=== PATIENT | female | born 1935 | race Caucasian/White ===

== ENCOUNTER 2016-03-18 17:38 | Inpatient (IN) | payer OTHER, BC ==
[~2016-03-18] VITALS: Ht 162.6 cm; Wt 44.5 kg
--- NOTE | ~2016-03-18 | EKG ---
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: [facility] : 1935 Requested By: Celine Christie Order Number: [id number] MD: Elmer Pace Measurements Intervals [place] Rate: 102 P: 78 [place]: 164 QRS: 26 QRSD: 93 T: 75 QT: 329 QTc: 429 Interpretive Statements Sinus tachycardia Right atrial enlargement Cannot rule out anteroseptal infarct, old Compared to ECG 07/03/2015 06:01:31 No significant change was found Electronically Signed On 03-19-2016 8:01:49 MAINTENANCE ENGINEER by Elmer Pace [email or web address] <ELECTRONICALLY SIGNED> By: Elmer Pace MD, [facility] 03/19/16 0801 1840 1840 Emler Pace MD, [facility] /EPI
--- NOTE | ~2016-03-18 | HC ---
[facility] [place] [address] CONSULTATION Name: MIRIAM WISE Room #: 441-P [facility] IN ..#: [id number] Admission: 03/18/16 Attend Phys: Javid Campos MD Discharge: Date of : 35 Report #: [id number] THIS REPORT FOR: //name// CC: FAM physician/PCP Javid Campos MD PRIMARY CARE PHYSICIAN: Patricia Chaney M.D. REFERRING PHYSICIAN: Javid Campos M.D. REASON FOR REFERRAL: Dyspnea and COPD. HISTORY OF PRESENT ILLNESS: The patient is an 80-year-old white female who presented to the Emergency Room with dyspnea. She was admitted with an exacerbation of COPD. A pulmonary consultation was requested. The patient is normally followed by Dr. Jane. She has known COPD. She is normally on nebulized Brovana and Budesonide twice a day along with Mucomyst. She has chronic hypoxic respiratory failure, on supplemental oxygen. She is chronically on 2 liters of O2. She was in her usual state of health until 3 days prior to presentation she started to develop increasing dyspnea. She also notes drowsiness. About less than a week ago, she was treated for possible sinus infection. Otherwise, denies any chest pain. No nausea, vomiting, diarrhea, hematemesis, hematochezia or melena. PAST MEDICAL HISTORY: Remarkable for COPD, severe impairment, baseline FEV1 of 0.48 liters, 27% predicted; history of lung cancer, undergone thoracotomy; she had a right upper lobe resection in 2013 for recurrent cancer. Initial lung cancer was diagnosed in 2002, peripheral neuropathy with essential tremor. ALLERGIES: To PENICILLIN which causes nausea, vomiting and diarrhea. HOME MEDICATIONS: List reviewed. She is also on acetylcysteine twice a day, 2 liters of O2 24 hours a day, Xopenex 1.25 mg q.8 hours, Brovana 15 mcg nebulized twice a day, budesonide nebulized twice a day, Spiriva once a day and prednisone 10 mg once a day. FAMILY HISTORY: Notable for both parents with reasons not specified. SOCIAL HISTORY: She has smoked most of her life until 2014. She denies any alcohol use. She is and is retired. [address] [address] CONSULTATION Name: MIRIAM WISE Room #: 441-P [facility] IN [facility].#: [id number] Admission: 03/18/16 Attend Phys: Javid Campos MD Discharge: Date of : 35 Report #: [id number] REVIEW OF SYSTEMS: As mentioned above; otherwise, 10-point system review is negative. PHYSICAL EXAMINATION: GENERAL: She is awake and alert, in moderate respiratory distress. She appears moderately dyspneic. VITAL SIGNS: Temperature is 98 degrees Fahrenheit, pulse is 90, respiratory rate is 22, blood pressure is 120/____ mmHg and saturation 96%. HEENT: Normocephalic and atraumatic. NECK: Supple, without lymphadenopathy or thyromegaly. CHEST: Breath sounds are decreased bilaterally with prolonged expiratory phase. Mild expiratory wheezes are heard bilaterally. CARDIOVASCULAR: Normal S1 and S2. There are no murmurs or gallop. There is no JVD. There is no carotid bruit. Pulses are 2+/4+ bilaterally. ABDOMEN: Soft and nontender, no organomegaly or masses felt. GENITOURINARY: Deferred. RECTAL: Deferred. EXTREMITIES: No cyanosis, clubbing or edema. MUSCULOSKELETAL: Remarkable for moderate atrophy with cachexia. LABORATORY DATA: Chest x-ray shows hyperexpanded lung rosario, no obvious infiltrates or effusion seen. Electrolytes unremarkable except for bicarbonate of 42. Liver function test is grossly unremarkable. WBC 12,700, hemoglobin 10.3 and platelets mildly elevated. Arterial blood gas on admission revealed pH 7.28, pCO2 of 94, PaO2 of 138 on 2 liters of O2. Albumin 3.3. IMPRESSION: 1. Vsxzv-al-uxyizej hypercapnic hypoxic respiratory failure in this 80-year-old white female secondary to exacerbation of very severe chronic obstructive pulmonary disease. She had a recent sinus infection. Chest x-ray is relatively unremarkable. 2. History of lung cancer with recurrence, status post thoracotomy as mentioned above. No obvious lung mass or recurrence. 3. 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 RECOMMENDATIONS: I agree with current medical treatment including corticosteroids and bronchodilators. DVT and GI prophylaxis will be addressed. I think it is reasonable to hold off antibiotics as she was recently given antibiotics within the past week. Nutritional support will be important as the patient appeared to have some degree of malnutrition probably related to severe pulmonary disease. Nutritional supplements recommended. [address] [address] CONSULTATION Name: WISEMIRIAM A Room #: 441-P [facility] IN M.R.#: [id number] Admission: 03/18/16 Attend Phys: Javid Campos MD Discharge: Date of : 35 Report #: [id number] Thank you for this consultation. <ELECTRONICALLY SIGNED> By: Mike James MD 03/20/16 1611 1709 0145 Mike James MD /nt
[~2016-03-18 17:38] MED LIST: ACETAMINOPHEN325 M1 PO; ACETYLCYST1000 MG/10 INH; ALPHA LIPOIC A200 M1; ALPHA LIPOIC A200 MG; ARTIFICIAL TEA1 EACH OP; ASTELIN30 ML; ASTELIN30 ML NASAL; AVELOX 400 MG PO; AVELOX 400 MG400 MG PO; BROVANA15 MCG/2 M INH; BUDEPRION SR150 MG PO; BUDESONIDE0.25 MG/2 INH; CALCIUM 600 +1 EAC1 PO; CALMS FORTE; CEPACOL SORE T1 EAC8 PO; CETIRIZINE HCL5 MG PO; CLARITIN10 MG PO; CLONAZEPAM 0.50.5 M1 PO; CLONAZEPAM PO; CLONAZEPAM0.125 MG PO; CLONAZEPAM0.25 MG PO; CODEINE-GUAIFE120 ML PO; COENZYME Q1050 MG; DELSYM COU30 MG/5 M1 PO; DOXYCYCLINE 10100 MG PO; DUONEB 2.5-0.5 M3 ML INH; FISH OIL 1,0001 EAC5 PO; FLOMAX0.4 MG PO; FLONASE 0.05%50 MCG NASAL; GABAPENTIN100 MG PO; HEPARIN 50500 UNIT/5 SUBQ; HIZENTRA1 GM/5 ML; HIZENTRA1 GM/5 ML SUBQ; IBUPROFEN 200200 M1; IBUPROFEN 400400 M2 PO; IPRATROPIU0.2 MG/1 M IH; LEVAQUIN 500 M500 M2 PO; LEVAQUIN 750 M750 MG PO; LIDODERM 5%1 PATC1 TRANSDERM; MUCINEX600 MG PO; MULTIVITAMINS PO; MULTIVITAMINS1 EAC7; MYSOLINE50 MG PO; N-ACETYL-L-CYS600 MG PO; NICOTINE TRANSD14 M1 TRANSDERM; NICOTINE TRANSDERM; NITROFURANTOIN100 MG PO; OMEPRAZOLE PO; PATADAY2.5 ML; PEPCID20 MG PO; PHENASEPTIC1 BOT MUCOUS MEM; PREDNISONE 10 M10 M1 PO; PREDNISONE 10 M10 MG PO; PREDNISONE 20 M20 M1 PO; PREDNISONE 20 M20 MG PO; PREDNISONE 5 MG5 M1 PO; PREDNISONE50 MG PO; PRIMIDONE50 MG PO; PROTONIX40 M1 PO; PROVENTIL INH; PULMICORT0.5 MG/22 INH; REMERON15 MG PO; REQUIP 0.25 M0.25 M1 PO; REQUIP 0.25 M0.25 MG PO; SOLU-MEDRO40 MG/1 M2 IV PUSH; SPIRIVA INH; SULFACETAMIDE 115 M1 OP; SYMBICORT160 MCG/4. INH; TUSSIN CF COUG118 M2 PO; TUSSIN15 MG/5 ML PO; TUSSIN400 MG; ULTRAM 50MG TAB50 MG PO; VITAMINC500 PO; XOPENEX 0.63 MG/3 M1 INH; ZOFRAN ODT4 MG PO; ZOLOFT100 MG PO; ZYRTEC 10 MG TA10 M1 PO; ZYRTEC10 M2; [UNRECOGNIZED DRUG - OTHER]; [UNRECOGNIZED DRUG - OTHER] PO
[2016-03-18 17:39] VITALS: BP 179/67
[2016-03-18] MEDS ORDERED: PREDNISONE 20 M20 MG PO (17:55)
[2016-03-18 19:08] LABS: ABG SAMPLE TYPE ARTERIAL; HCO3 37.1 mmol/L (22.0-26.0); LACTATE 0.66 mmol/L (0.5-2.0); O2(CT) 16.2 mL/dL (15.0-23.0); O2Hb 96.3 % (92.0-98.0); PCO2 70.2 mmHg (35.0-45.0); PO2 98.7 mmHg (80.0-100.0); STICK SITE R.RADIAL; pH 7.341 (7.360-7.450); sO2 96.9 % (92.0-98.0); tCO2 39.3 mmol/L (24.0-30.0)
[2016-03-18 19:27] LABS: HEMATOCRIT 32.9 % (37.0-47.0); HEMOGLOBIN 10.3 gm/dL (12.0-15.0); MCH 28.9 pg (26.0-34.0); MCHC 31.4 % (28.0-37.0); MCV 92.1 fL (80.0-100.0); PLATELET COUNT 427 thou/uL (150-400); RBC 3.58 mil/uL (4.20-5.00); RDW 14.5 % (10.5-14.5); WBC 12.7 thou/uL (4.0-11.0)
[2016-03-18 19:30] LABS: MANUAL DIFF YES
[2016-03-18 19:32] LABS: ANION GAP < 0 mmol/L (7-16); BUN 18 mg/dL (7-18); CHLORIDE 99 mmol/L (98-107); CO2 42 mmol/L (21-32); CREATININE 0.7 mg/dL (0.6-1.3); GLUCOSE 128 mg/dL (70-99); POTASSIUM 4.6 mmol/L (3.5-5.1); SODIUM 140 mmol/L (136-145)
[2016-03-18 19:45] LABS: NT-PRO BRAIN NAT PEPTIDE 134 pg/mL (<300)
[2016-03-18 19:50] LABS: ABSOLUTE NEUTROPHILS 11.9 thou/uL (1.4-8.2); TOTAL CELL COUNT 100
[2016-03-18 20:05] VITALS: BP 143/66
[2016-03-18 20:20] VITALS: BP 160/57
[2016-03-19 04:00] VITALS: BP 143/45
[2016-03-19 05:25] LABS: ABG SAMPLE TYPE ARTERIAL; BE(vivo) 13.5 mmol/L (-2 to +3); HCO3 43.7 mmol/L (22.0-26.0); LACTATE 0.66 mmol/L (0.5-2.0); O2(CT) 15.7 mL/dL (15.0-23.0); O2Hb 97.2 % (92.0-98.0); PCO2 94.9 mmHg (35.0-45.0); PO2 138.7 mmHg (80.0-100.0); STICK SITE R.RADIAL; pH 7.281 (7.360-7.450); sO2 98.3 % (92.0-98.0); tCO2 46.6 mmol/L (24.0-30.0)
[2016-03-19 06:58] LABS: ALBUMIN 3.3 g/dL (3.4-5.0); CALCIUM 9.7 mg/dL (8.5-10.1); CREATININE 0.7 mg/dL (0.6-1.3); TOTAL BILIRUBIN 0.2 mg/dL (<0.1-1.0); TOTAL PROTEIN 7.2 g/dL (6.4-8.2)
[2016-03-19 08:00] VITALS: BP 144/63
[2016-03-19] MEDS ORDERED: PRESERVISION A1 EACH PO (09:36)
[2016-03-19 12:00] VITALS: BP 128/36
[2016-03-19 12:45] VITALS: BP 136/58
[2016-03-19 20:00] VITALS: BP 95/54
[2016-03-19 21:47] LABS: ABG SAMPLE TYPE ARTERIAL; BE(vivo) 14.7 mmol/L (-2 to +3); HCO3 42.1 mmol/L (22.0-26.0); O2(CT) 15.5 mL/dL (15.0-23.0); O2Hb 95.1 % (92.0-98.0); PO2 80.1 mmHg (80.0-100.0); sO2 95.5 % (92.0-98.0); tCO2 44.2 mmol/L (24.0-30.0)
[2016-03-19 21:49] LABS: STICK SITE R.RADIAL
[2016-03-20 05:30] VITALS: BP 142/75
[2016-03-20 08:24] VITALS: BP 173/66
[2016-03-20 12:21] VITALS: BP 149/67
[2016-03-20 16:33] VITALS: BP 163/62
[2016-03-20 20:10] VITALS: BP 184/84
[2016-03-21 04:28] VITALS: BP 153/72
[2016-03-21 05:25] LABS: HEMATOCRIT 35.4 % (37.0-47.0); HEMOGLOBIN 10.9 gm/dL (12.0-15.0); MCH 28.9 pg (26.0-34.0); MCHC 30.8 % (28.0-37.0); MCV 93.7 fL (80.0-100.0); RBC 3.78 mil/uL (4.20-5.00); RDW 14.7 % (10.5-14.5); WBC 18.8 thou/uL (4.0-11.0)
[2016-03-21 06:00] LABS: CALCIUM 9.3 mg/dL (8.5-10.1); CREATININE 0.9 mg/dL (0.6-1.3); MAGNESIUM 1.9 mg/dL (1.8-2.4); POTASSIUM 4.1 mmol/L (3.5-5.1)
[2016-03-21 07:35] VITALS: BP 165/66
[2016-03-21 10:49] VITALS: BP 174/56
[2016-03-21 12:19] VITALS: BP 165/80
[2016-03-21 19:41] VITALS: BP 180/74
[2016-03-21 23:45] VITALS: BP 162/61
[2016-03-22 04:07] VITALS: BP 135/60
[2016-03-22 04:42] LABS: HEMATOCRIT 34.3 % (37.0-47.0); HEMOGLOBIN 10.8 gm/dL (12.0-15.0); MCH 29.5 pg (26.0-34.0); MCHC 31.6 % (28.0-37.0); MCV 93.3 fL (80.0-100.0); RBC 3.67 mil/uL (4.20-5.00); RDW 14.9 % (10.5-14.5)
[2016-03-22 05:15] LABS: CALCIUM 9.1 mg/dL (8.5-10.1); CREATININE 0.7 mg/dL (0.6-1.3); POTASSIUM 4.5 mmol/L (3.5-5.1)
[2016-03-22 07:33] VITALS: BP 159/77
[2016-03-22 07:35] LABS: ABG SAMPLE TYPE ARTERIAL; BE(vivo) 6.4 mmol/L (-2 to +3); HCO3 32.5 mmol/L (22.0-26.0); O2(CT) 15.1 mL/dL (15.0-23.0); O2Hb 92.6 % (92.0-98.0); PCO2 53.6 mmHg (35.0-45.0); PO2 69.4 mmHg (80.0-100.0); STICK SITE R.BRACHIAL; sO2 93.6 % (92.0-98.0); tCO2 34.1 mmol/L (24.0-30.0)
[2016-03-22 11:49] VITALS: BP 154/86
[2016-03-22] MEDS ORDERED: NYSTATIN 1100000 U/M SW&SWALLOW (16:30)
[2016-03-22 16:51] VITALS: BP 180/82
[2016-03-23 08:57] VITALS: BP 180/82
[2016-04-03] MEDS ORDERED: TUSNEL LIQUID3840 ML (12:23)
[2016-04-06] MEDS ORDERED: ENOXAPARIN30 MG/0.1 SUBQ (08:48)
[2016-04-06] MEDS ORDERED: DUONEB 2.5-0.5 M3 ML INH (08:48)
[2016-04-06] MEDS ORDERED: AMLODIPINE BESY10 MG PO (08:48)
[2016-04-06] MEDS ORDERED: SOLU-MEDRO40 MG/1 M2 IV PUSH (08:50)
[2016-04-06] MEDS ORDERED: LEVAQUIN 250 M250 MG PO (08:56)
[2016-04-06] MEDS ORDERED: VANCO 1 GR1 GM/250 M IVPB (15:33)
== END 2016-03-22 19:21 | DRG 189 ==
LOC: ER 17:38 → EROBS 19:22 → 4S 19:22
PROVIDERS: Emergency Medicine; Hospitalist; Internal Medicine Pulmonary Disease; Nurse Practitioner Acute Care; Nurse Practitioner Family
PROC: 5A09357 Assistance with Respiratory Ventilation, Less than 24 Consecutive Hours, Continuous Positive Airway Pressure (ICD-10-PCS; principal; 2016-03-19)
DX: J96.22 Acute and chronic respiratory failure with hypercapnia (principal); E43 Unspecified severe protein-calorie malnutrition; J44.1 Chronic obstructive pulmonary disease with (acute) exacerbation; Z68.1 Body mass index [BMI] 19.9 or less, adult; F41.9 Anxiety disorder, unspecified; K21.9 Gastro-esophageal reflux disease without esophagitis; M51.36 Other intervertebral disc degeneration, lumbar region; G62.9 Polyneuropathy, unspecified; J96.21 Acute and chronic respiratory failure with hypoxia; Z88.0 Allergy status to penicillin; Z88.8 Allergy status to other drugs, medicaments and biological substances; Z99.81 Dependence on supplemental oxygen; Z79.899 Other long term (current) drug therapy; Z85.118 Personal history of other malignant neoplasm of bronchus and lung; Z88.1 Allergy status to other antibiotic agents; Z87.891 Personal history of nicotine dependence
CPT/HCPCS: 10100

== ENCOUNTER → 2016-05-22 | Outpatient (CLI) | payer OTHER, BC ==
[~2016-05-22] MED LIST changes: +AMLODIPINE BESY10 MG PO; +ENOXAPARIN30 MG/0.1 SUBQ; +LEVAQUIN 250 M250 MG PO; +NYSTATIN 1100000 U/M SW&SWALLOW; +PRESERVISION A1 EACH PO; +TUSNEL LIQUID3840 ML; +VANCO 1 GR1 GM/250 M IVPB
[2016-05-22 12:30] LABS: ABG SAMPLE TYPE ARTERIAL; BE(vivo) 10.1 mmol/L (-2 to +3); HCO3 37.8 mmol/L (22.0-26.0); O2(CT) 16.6 mL/dL (15.0-23.0); O2Hb 95.4 % (92.0-98.0); PO2 79.3 mmHg (80.0-100.0); tCO2 39.9 mmol/L (24.0-30.0)
[2016-05-22 12:31] LABS: PCO2 66.9 mmHg (35.0-45.0); STICK SITE L.RADIAL
== END ==
LOC: PUL 02:03 → CAT 11:14 → PUL 16:10
PROVIDERS: Radiology Radiation Oncology
DX: J43.9 Emphysema, unspecified (principal); R91.1 Solitary pulmonary nodule; I25.10 Atherosclerotic heart disease of native coronary artery without angina pectoris; E27.8 Other specified disorders of adrenal gland

== ENCOUNTER 2016-06-02 14:06 | Emergency (ER) | payer OTHER, BC ==
[~2016-06-02] VITALS: Ht 160 cm; Wt 45.4 kg
[2016-06-02 14:52] LABS: ABG SAMPLE TYPE ARTERIAL; BE(vivo) 6.2 mmol/L (-2 to +3); HCO3 33.2 mmol/L (22.0-26.0); LACTATE 1.43 mmol/L (0.5-2.0); O2(CT) 16.1 mL/dL (15.0-23.0); O2Hb 96.2 % (92.0-98.0); PCO2 59.8 mmHg (35.0-45.0); PO2 93.8 mmHg (80.0-100.0); STICK SITE R.BRACHIAL; pH 7.362 (7.360-7.450); sO2 96.7 % (92.0-98.0)
[2016-06-02 15:13] LABS: HEMATOCRIT 35.9 % (37.0-47.0); HEMOGLOBIN 11.7 gm/dL (12.0-15.0); MCHC 32.5 g/dL (28.0-37.0); MCV 95.4 fL (80.0-100.0); PLATELET COUNT 490 thou/uL (150-400); RBC 3.77 mil/uL (4.20-5.00); RDW 14.3 % (10.5-14.5); WBC 18.5 thou/uL (4.0-11.0)
[2016-06-02 15:15] LABS: MANUAL DIFF YES
[2016-06-02 15:26] LABS: CREATININE 0.8 mg/dL (0.6-1.3)
[2016-06-02 15:27] LABS: POTASSIUM 4.3 mmol/L (3.5-5.1)
[2016-06-02 15:49] LABS: ABSOLUTE NEUTROPHILS 17.4 thou/uL (1.4-8.2); ANISOCYTOSIS SLIGHT; TOTAL CELL COUNT 100
[2016-06-02] MEDS ORDERED: PREDNISONE 20 M20 MG PO (17:23)
[2016-06-02] MEDS ORDERED: NORCO 5-325 TA1 EACH PO (17:27)
[2016-06-02] MEDS ORDERED: ULTRAM 50MG TAB50 MG PO (17:32)
[2016-06-02 17:40] LABS: URINE BILIRUBIN NEGATIVE (Negative); URINE BLOOD NEGATIVE (Negative); URINE COLOR YELLOW; URINE GLUCOSE-RANDOM* NEGATIVE (Negative); URINE KETONES NEGATIVE (Negative); URINE NITRITE NEGATIVE (Negative); URINE PROTEIN (DIPSTICK) NEGATIVE (Negative); URINE UROBILINOGEN 0.2 E.U./dl (0.2-1.0)
== END 2016-06-02 19:36 | disposition home or self-care (01) ==
LOC: ER 14:06
PROVIDERS: Emergency Medicine
DX: M54.9 Dorsalgia, unspecified (principal); J44.9 Chronic obstructive pulmonary disease, unspecified; D72.829 Elevated white blood cell count, unspecified; F41.9 Anxiety disorder, unspecified; M51.37 Other intervertebral disc degeneration, lumbosacral region; F32.9 Major depressive disorder, single episode, unspecified; Z85.118 Personal history of other malignant neoplasm of bronchus and lung; G62.9 Polyneuropathy, unspecified; Z86.2 Personal history of diseases of the blood and blood-forming organs and certain disorders involving the immune mechanism; Z88.1 Allergy status to other antibiotic agents; Z88.8 Allergy status to other drugs, medicaments and biological substances; Z87.891 Personal history of nicotine dependence

== ENCOUNTER → 2016-06-05 | Outpatient (CLI) | payer OTHER, BC ==
[~2016-06-05] MED LIST changes: +NORCO 5-325 TA1 EACH PO
== END ==
LOC: RAD 11:36
DX: M41.84 Other forms of scoliosis, thoracic region (principal); M47.814 Spondylosis without myelopathy or radiculopathy, thoracic region; M54.6 Pain in thoracic spine; R07.89 Other chest pain

== ENCOUNTER 2016-06-25 03:46 | Inpatient (IN) | payer OTHER, BC ==
[2016-06-25] VITALS (30 sets, daily range): BP systolic 71–140; BP diastolic 37–74
[~2016-06-25] VITALS: Ht 162.6 cm; Wt 51.8 kg
--- NOTE | ~2016-06-25 | EKG ---
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 : 1935 Requested By: Jeniffer Chino Order Number: [id number] MD: Elmer Pace Measurements Intervals [place] Rate: 208 P: [place]: QRS: 30 QRSD: 72 T: 88 QT: 244 QTc: 455 Interpretive Statements Incomplete analysis due to missing data in precordial lead(s) Atrial fibrillation with rapid V-rate Repolarization abnormality, prob rate related Missing lead(s): V4 Compared to ECG 06/25/2016 04:22:00 atrial fibrillation has replaced sinus tachycardia ST and T-wave abnormality is more prominent Electronically Signed On 06-28-2016 8:24:43 CDT by Elmer Pace [email or web address] <ELECTRONICALLY SIGNED> By: Elmer Pace MD, FACC 06/28/16 0824 08 08 Elmer Pace MD, FACC /EPI
--- NOTE | ~2016-06-25 | EKG ---
[address] [place] [place] [address] ELECTROCARDIOGRAM REPORT Name: WISEMIRIAM Room #: 244-P ADM IN .R.#: [id number] Admission: 06/25/16 Attend Phys: Valeriano Moe MD Discharge: Date of : 35 Report #: [id number] THIS REPORT FOR: //name// [facility] ED Test Date: 2016-06-25 Test Time: 04:22:00 Pat Name: MIRIAM WISE Department: Room: [facility] Gender: F Demurrage Man: matilde : 1935 Requested By: Josselyn Baig Order Number: [id number] MD: Elmer Pace Measurements Intervals [place] Rate: 110 P: 75 [place]: 134 QRS: 38 QRSD: 80 T: 75 QT: 317 QTc: 429 Interpretive Statements Sinus tachycardia Right atrial enlargement Inferior infarct, possibly acute Artifact in lead(s) I,II,III,aVR,aVL,aVF Compared to ECG 04/03/2016 02:55:06 No significant change was found Electronically Signed On 06-25-2016 9:27:25 CDT by Elmer Pace [email or web address] <ELECTRONICALLY SIGNED> By: Elmer Pace MD, [facility] 06/25/16 0927 1 1 Elmer Pace MD, [facility] /EPI
--- NOTE | ~2016-06-25 | HC ---
[place] [address] CONSULTATION Name: MIRIAM WISE Room #: 312-P [facility] IN M.R.#: [id number] Admission: 06/25/16 Attend Phys: Jeffry Borrego DO Discharge: Date of : 35 Report #: [id number] THIS REPORT FOR: //name// CC: Mika Moe DATE OF SERVICE: 06/25/2016 REASON FOR CONSULTATION: 1. Exacerbation of chronic obstructive pulmonary disease. 2. Possible pneumonia. 3. ST abnormalities. 4. History of lung carcinoma with treatment with radiation and past surgery. 5. New nodule. 6. Anemia. 7. Immune deficiency PLAN: I agree with current steroids, antibiotics, aerosol therapy. Cardiology to see. DVT and ulcer prophylaxis. Discussed with daughter, we will have her bring in the Trilogy. HISTORY OF PRESENT ILLNESS: An 80-year-old female comes in with complaint of shortness of breath, has been having chest pain, shoulders and back. Was prescribed Tramadol and nonsteroidals when she came in hypercapnic. She has not been using her Trilogy. PAST MEDICAL HISTORY: MEDICATIONS: Augmentin. SOCIAL HISTORY: Positive tobacco in past. Negative ETOH. PAST SURGICAL HISTORY: Include tonsillectomy, oophorectomy, hysterectomy, and lobectomy. REVIEW OF SYSTEMS: Positive for COPD, neuropathy, tremor, lung CA, dyspnea on exertion, back pain. No dysuria. Positive shortness breath, cough, intolerant of Trilogy. FAMILY HISTORY: No history of lung disease. CURRENT MEDICATIONS: On Protonix, ceftriaxone, , Requip, Xopenex, ipratropium, budesonide. PHYSICAL EXAMINATION: VITAL SIGNS: Temperature 96.8, blood pressure is 136/47. [address] [place] [address] CONSULTATION Name: BECK WISEVERONICA Gustafson Room #: 312-P [facility] IN [facility]#: [id number] Admission: 06/25/16 Attend Phys: Jeffry Borrego DO Discharge: Date of : 35 Report #: [id number] LUNGS: Decreased. HEART: Regular. ABDOMEN: Bowel sounds present. EXTREMITIES: Showed no edema. GENERAL: Thin, weak today. LABORATORY DATA: INR 1. BUN 27, creatinine 0.7. Albumin 3.2. White count 16.1, hemoglobin 11.2, platelets 359. pH 7.204, pCO2 of 116, pO2 of 152 on 3 liters. Chest x-ray showed left upper lobe mass, troponin less than 0.04. <ELECTRONICALLY SIGNED> By: Mika Jane MD 06/26/16 1811 1450 0118 Mika Jane MD /nt
--- NOTE | ~2016-06-25 | 2DMMODE ---
[facility] [address] [place] [address] 2 D/M-MODE ECHOCARDIOGRAM Name: MIRIAM WISE Room #: 244-P [facility] IN ..#: [id number] Admission: 06/25/16 Attend Phys: Valeriano Moe, Discharge: Date of : 35 Date of Service: 06/25/16 1557 Report #: [id number] THIS REPORT FOR: //name// APPROVED REPORT Study performed: 06/25/2016 15:18:17 EXAM: Comprehensive 2D, Doppler, and color-flow Echocardiogram Patient Location: Bedside Room #: 244 Blood Pressure: 127/44 mmHg HR: 92 bpm Other Information Study Quality: Good Indications COPD Dyspnea 2D Dimensions RVDd: 35.05 mm LVEF(%): 55.52 (>50%) IVSd: 9.20 (7-11mm) LVOT Diam: 18.77 (18-24mm) LVDd: 40.69 mm PWd: 9.11 (7-11mm) Ascending Ao: 36.76 (22-36mm) LVDs: 29.08 (25-40mm) Aortic Root: 38.10 mm IVC: 22.00 mm Apple's LVEF: 55.52 % Volumes Left Atrial Volume (Systole) Single Plane 4CH: 22.87 mL Single Plane 2CH: 15.59 mL LA ESV Index: 14.00 mL/m2 Aortic Valve AoV Peak Trae.: 1.24 m/s AO Peak Gr.: 6.16 mmHg LVOT Max P.37 mmHg LVOT Max V: 1.16 m/s Mitral Valve E/A Ratio: 0.7 MV Decel. Time: 211.32 ms [facility] [address] [place] [address] 2 D/M-MODE ECHOCARDIOGRAM Name: MIRIAM WISE Room #: 244-P [facility] IN [facility]#: [id number] Admission: 06/25/16 Attend Phys: Valeriano Moe, Discharge: Date of : 35 Date of Service: 06/25/16 1557 Report #: [id number] MV E Max Trae.: 0.82 m/s MV A Trae.: 1.12 m/s MV PHT: 61.28 ms Pulmonary Valve PV Peak Trae.: 1.02 m/s PV Peak Gr.: 4.13 mmHg Pulmonary Vein P Vein S: 28.7 m/s P Vein D: 27.5 m/s P Vein A Dur.: 18.6 m/s Tricuspid Valve TR Peak Trae.: 3.11 m/s RAP Estimate: 15.00 mmHg TR Peak Gr.: 38.77 mmHg Left Ventricle The left ventricle is normal size. There is normal left ventricular wall thickness. The left ventricular systolic function is normal. The left ventricular ejection fraction is within the normal range. LVEF is 60-65%. Grade I - abnormal relaxation pattern. Right Ventricle The right ventricle is normal size. The right ventricular systolic function is normal. Atria The left atrium size is normal. The right atrium size is normal. Aortic Valve The aortic valve is normal in structure. No aortic regurgitation is present. There is no aortic valvular stenosis. Mitral Valve The mitral valve is normal in structure. Trace mitral regurgitation. No evidence of mitral valve stenosis. Tricuspid Valve The tricuspid valve is normal in structure. There is mild to moderate tricuspid regurgitation. The right atrial pressure is estimated at 15 mmHg. There is moderate to severe pulmonary hypertension. The estimated PAP was 54 mmHg. Pulmonic Valve The pulmonary valve is normal in structure. There is no pulmonic valvular regurgitation. [address] [address] 2 D/M-MODE ECHOCARDIOGRAM Name: MIRIAM WISE Janay Room #: 244-P [facility] IN [facility]#: [id number] Admission: 06/25/16 Attend Phys: Valeriano Moe, Discharge: Date of : 35 Date of Service: 06/25/16 1557 Report #: [id number] Great Vessels The aortic root is normal in size. IVC is dilated and collapses <50% with inspiration. Pericardium There is no pericardial effusion. <Conclusion> The left ventricle is normal size. LVEF is 60-65%. The aortic valve is normal in structure. The mitral valve is normal in structure. Trace mitral regurgitation. The tricuspid valve is normal in structure. There is mild to moderate tricuspid regurgitation. The right atrial pressure is estimated at 15 mmHg. There is moderate to severe pulmonary hypertension. The estimated PAP was 54 mmHg. <ELECTRONICALLY SIGNED> By: Fermín Neil MD 06/25/16 1557 1557 1557 Fermín Neil MD /INF
--- NOTE | ~2016-06-25 | EKG ---
[address] [address] ELECTROCARDIOGRAM REPORT Name: BECK WISEHLEEN Janay Room #: 244-P [facility] IN .R.#: [id number] Admission: 06/25/16 Attend Phys: Valeriano Moe MD Discharge: Date of : 35 Report #: [id number] THIS REPORT FOR: //name// [facility] ED Test Date: 2016-06-25 Test Time: 03:51:23 Pat Name: MIRIAM WISE Department: Room: [facility] Gender: F Cotton Tier: CWEILIZ : 1935 Requested By: Josselyn Baig Order Number: [id number] MD: Elmer Pace Measurements Intervals [place] Rate: 109 P: 68 [place]: 141 QRS: 50 QRSD: 69 T: 81 QT: 304 QTc: 410 Interpretive Statements Sinus tachycardia Right atrial enlargement Inferior infarct, possibly acute Compared to ECG 04/03/2016 02:55:06 Myocardial infarct finding now present Electronically Signed On 06-25-2016 9:26:47 CDT by Elmer Pace [email or web address] <ELECTRONICALLY SIGNED> By: Elmer Pace MD, [facility] 06/25/16 0926 0351 0351 Elmer Pace MD, [facility] /EPI
[2016-06-25] MEDS ORDERED: ROBINUL0.2 MG/1 M PO (03:57)
[2016-06-25] MEDS ORDERED: DELSYM COU30 MG/5 M1 PO (03:59)
[2016-06-25] MEDS ORDERED: HIZENTRA1 GM/5 ML (04:00)
[2016-06-25] MEDS ORDERED: TESSALON PERLE100 MG PO (04:01)
[2016-06-25] MEDS ORDERED: BISACODYL SUPP10 MG RECTAL (04:02)
[2016-06-25] MEDS ORDERED: COLACE100 MG PO (04:03)
[2016-06-25] MEDS ORDERED: CEPACOL SORE T1 EAC7 PO (04:03)
[2016-06-25] MEDS ORDERED: NORVASC5 MG PO (04:04)
[2016-06-25] MEDS ORDERED: MIRALAX17 GM PO (04:12)
[2016-06-25 04:13] LABS: HEMATOCRIT 34.6 % (37.0-47.0); HEMOGLOBIN 11.2 gm/dL (12.0-15.0); MCHC 32.4 g/dL (28.0-37.0); MCV 95.7 fL (80.0-100.0); PLATELET COUNT 359 thou/uL (150-400); RBC 3.62 mil/uL (4.20-5.00); RDW 13.6 % (10.5-14.5); WBC 16.1 thou/uL (4.0-11.0)
[2016-06-25] MEDS ORDERED: [UNRECOGNIZED DRUG - OTHER] NASAL (04:14)
[2016-06-25] MEDS ORDERED: FLOVENT HFA 4444 MCG INH (04:17)
[2016-06-25 04:18] LABS: MANUAL DIFF YES
[2016-06-25] MEDS ORDERED: PATADAY2.5 ML (04:19)
[2016-06-25] MEDS ORDERED: ROBITUSSIN15 MG/5 ML PO (04:20)
[2016-06-25] MEDS ORDERED: ARTIFICIAL TEA1 EACH (04:22)
[2016-06-25 04:26] LABS: ANION GAP 2 mmol/L (7-16); BUN 27 mg/dL (7-18); CALCIUM 9.1 mg/dL (8.5-10.1); CHLORIDE 99 mmol/L (98-107); CO2 42 mmol/L (21-32); CREATININE 0.7 mg/dL (0.6-1.0); GLUCOSE 92 mg/dL (74-106); POTASSIUM 4.5 mmol/L (3.5-5.1); SODIUM 143 mmol/L (136-145)
[2016-06-25 04:27] LABS: APTT 28.3 Seconds (24.5-32.8); PROTIME 9.9 Seconds (9.3-11.4)
[2016-06-25 04:38] LABS: ALBUMIN 3.2 g/dL (3.4-5.0); ALKALINE PHOSPHATASE 94 U/L (46-116); NT-PRO BRAIN NAT PEPTIDE 399 pg/mL (<300); SGOT 12 U/L (15-37); SGPT 16 U/L (30-65); TOTAL BILIRUBIN 0.2 mg/dL (<0.1-1.0); TOTAL PROTEIN 6.8 g/dL (6.4-8.2); TROPONIN-I < 0.04 ng/mL (<0.04-0.07)
[2016-06-25 04:49] LABS: ABSOLUTE NEUTROPHILS 12.6 thou/uL (1.4-8.2); TOTAL CELL COUNT 100
[2016-06-25 05:12] LABS: ABG SAMPLE TYPE ARTERIAL; BE(vivo) 12.7 mmol/L (-2 to +3); HCO3 44.8 mmol/L (22.0-26.0); LACTATE 0.68 mmol/L (0.5-2.0); O2(CT) 16.6 mL/dL (15.0-23.0); PO2 152.1 mmHg (80.0-100.0); sO2 98.3 % (92.0-98.0); tCO2 48.4 mmol/L (24.0-30.0)
[2016-06-25 05:13] LABS: PCO2 116.3 mmHg (35.0-45.0); STICK SITE R.BRACHIAL; pH 7.204 (7.360-7.450)
[2016-06-26] VITALS (16 sets, daily range): BP systolic 42–180; BP diastolic 14–66
[2016-06-26 04:05] LABS: HEMATOCRIT 26.8 % (37.0-47.0); MCH 32.1 pg (26.0-34.0); MCV 97.2 fL (80.0-100.0); PLATELET COUNT 320 thou/uL (150-400); RBC 2.76 mil/uL (4.20-5.00)
[2016-06-26 04:09] LABS: HEMOGLOBIN 8.9 gm/dL (12.0-15.0); MANUAL DIFF YES
[2016-06-26 04:27] LABS: ALBUMIN 2.3 g/dL (3.4-5.0); CALCIUM 8.6 mg/dL (8.5-10.1); CREATININE 0.7 mg/dL (0.6-1.0); POTASSIUM 4.7 mmol/L (3.5-5.1); TOTAL BILIRUBIN 0.2 mg/dL (<0.1-1.0); TOTAL PROTEIN 5.4 g/dL (6.4-8.2)
[2016-06-26 05:29] LABS: ABG SAMPLE TYPE ARTERIAL; BE(vivo) 8.9 mmol/L (-2 to +3); LACTATE 0.53 mmol/L (0.5-2.0); O2(CT) 11.1 mL/dL (15.0-23.0); O2Hb 85.5 % (92.0-98.0); tCO2 39.3 mmol/L (24.0-30.0)
[2016-06-26 05:30] LABS: PCO2 75.6 mmHg (35.0-45.0); PO2 50.1 mmHg (80.0-100.0); STICK SITE R.BRACHIAL; pH 7.307 (7.360-7.450)
[2016-06-26 08:28] LABS: ABSOLUTE NEUTROPHILS 8.2 thou/uL (1.4-8.2); METAMYELOCYTES 1 %; TOTAL CELL COUNT 100
[2016-06-27 05:30] VITALS: BP 136/69
[2016-06-27 07:47] VITALS: BP 180/69
[2016-06-27 08:20] VITALS: BP 162/59
[2016-06-27 18:28] VITALS: BP 176/75
[2016-06-28 04:25] VITALS: BP 109/69
[2016-06-28 05:58] LABS: HEMATOCRIT 27.2 % (37.0-47.0); HEMOGLOBIN 8.6 gm/dL (12.0-15.0); MCH 30.8 pg (26.0-34.0); MCHC 31.7 g/dL (28.0-37.0); MCV 97.1 fL (80.0-100.0); PLATELET COUNT 343 thou/uL (150-400); RDW 13.6 % (10.5-14.5); WBC 11.3 thou/uL (4.0-11.0)
[2016-06-28 06:01] LABS: MANUAL DIFF YES
[2016-06-28 06:21] LABS: CALCIUM 7.7 mg/dL (8.5-10.1); CREATININE 0.7 mg/dL (0.6-1.0); POTASSIUM 4.1 mmol/L (3.5-5.1)
[2016-06-28 09:18] LABS: ABSOLUTE NEUTROPHILS 9.5 thou/uL (1.4-8.2); PLATELET ESTIMATE NORMAL; TOTAL CELL COUNT 100
[2016-06-28 14:17] VITALS: BP 181/71
[2016-06-28 15:53] VITALS: BP 197/75
[2016-06-28 21:04] VITALS: BP 159/69
[2016-06-29 04:00] VITALS: BP 159/64
[2016-06-29 07:35] VITALS: BP 163/69
[2016-06-29 10:21] LABS: ABG SAMPLE TYPE ARTERIAL; BE(vivo) 4.6 mmol/L (-2 to +3); HCO3 32.8 mmol/L (22.0-26.0); LACTATE 0.77 mmol/L (0.5-2.0); O2(CT) 14.4 mL/dL (15.0-23.0); sO2 94.3 % (92.0-98.0)
[2016-06-29 10:22] LABS: PCO2 70.8 mmHg (35.0-45.0); pH 7.284 (7.360-7.450)
[2016-06-29 10:23] LABS: STICK SITE R.RADIAL
[2016-06-29 12:50] VITALS: BP 170/80
[2016-06-29 15:52] VITALS: BP 202/86
[2016-06-29 19:49] VITALS: BP 167/68
[2016-06-30 04:29] VITALS: BP 156/56
[2016-06-30 08:00] VITALS: BP 176/66
[2016-06-30 16:25] VITALS: BP 129/54
[2016-06-30 20:23] VITALS: BP 140/52
[2016-07-01 06:06] LABS: HEMATOCRIT 27.4 % (37.0-47.0); HEMOGLOBIN 8.9 gm/dL (12.0-15.0); MCH 30.8 pg (26.0-34.0); MCHC 32.6 g/dL (28.0-37.0); MCV 94.5 fL (80.0-100.0); RBC 2.9 mil/uL (4.20-5.00); RDW 13.3 % (10.5-14.5); WBC 12.5 thou/uL (4.0-11.0)
[2016-07-01 06:15] LABS: CALCIUM 8.8 mg/dL (8.5-10.1); CREATININE 0.6 mg/dL (0.6-1.0); POTASSIUM 3.8 mmol/L (3.5-5.1)
[2016-07-01 06:44] VITALS: BP 133/51
[2016-07-01 07:55] VITALS: BP 149/60
[2016-07-01 11:43] VITALS: BP 144/55
[2016-07-01] MEDS ORDERED: DEXILANT30 MG PO (13:34)
[2016-07-01 20:25] VITALS: BP 137/51
[2016-07-02 03:23] LABS: HEMOGLOBIN 8.6 gm/dL (12.0-15.0); MCH 31.3 pg (26.0-34.0); MCHC 33.1 g/dL (28.0-37.0); MCV 94.3 fL (80.0-100.0); RBC 2.75 mil/uL (4.20-5.00); RDW 13.8 % (10.5-14.5); WBC 14.5 thou/uL (4.0-11.0)
[2016-07-02 03:42] LABS: ALBUMIN 2.3 g/dL (3.4-5.0); CALCIUM 8.5 mg/dL (8.5-10.1); CREATININE 0.6 mg/dL (0.6-1.0); POTASSIUM 3.9 mmol/L (3.5-5.1); TOTAL BILIRUBIN 0.2 mg/dL (<0.1-1.0); TOTAL PROTEIN 5.7 g/dL (6.4-8.2)
[2016-07-02 04:45] VITALS: BP 141/60
[2016-07-02 08:52] VITALS: BP 146/51
[2016-07-02] MEDS ORDERED: ROCEPHIN 11 GM/1001 IV (11:31)
[2016-07-02] MEDS ORDERED: CARDIZEM CD240 MG PO (11:32)
[2016-07-02] MEDS ORDERED: PACERONE 200 M200 M1 PO (11:32)
[2016-07-02] MEDS ORDERED: MSL20MG/ML PO (11:36)
== END 2016-07-02 16:35 | DRG 871 ==
LOC: ER 03:46 → EROBS 04:58 → ER 04:58 → ICU 05:36 → EROBS 05:36 → ICU 08:21 → 3N 06-26 11:05
PROVIDERS: Emergency Medicine; Family Medicine; Hospitalist; Internal Medicine Pulmonary Disease
PROC: 5A09357 Assistance with Respiratory Ventilation, Less than 24 Consecutive Hours, Continuous Positive Airway Pressure (ICD-10-PCS; 2016-06-25)
PROC: B548ZZA Ultrasonography of Superior Vena Cava, Guidance (ICD-10-PCS; principal; 2016-06-27)
PROC: 02HV33Z Insertion of Infusion Device into Superior Vena Cava, Percutaneous Approach (ICD-10-PCS; principal; 2016-06-27)
DX: A41.9 Sepsis, unspecified organism (principal); J96.22 Acute and chronic respiratory failure with hypercapnia; J15.6 Pneumonia due to other Gram-negative bacteria; J44.1 Chronic obstructive pulmonary disease with (acute) exacerbation; I48.92 Unspecified atrial flutter; D84.9 Immunodeficiency, unspecified; Z68.1 Body mass index [BMI] 19.9 or less, adult; E46 Unspecified protein-calorie malnutrition; F41.9 Anxiety disorder, unspecified; I48.91 Unspecified atrial fibrillation; I10 Essential (primary) hypertension; M51.36 Other intervertebral disc degeneration, lumbar region; G62.9 Polyneuropathy, unspecified; D64.9 Anemia, unspecified; D72.829 Elevated white blood cell count, unspecified; R91.1 Solitary pulmonary nodule; G25.0 Essential tremor; N30.20 Other chronic cystitis without hematuria; I95.9 Hypotension, unspecified; I27.2 Other secondary pulmonary hypertension; Z85.118 Personal history of other malignant neoplasm of bronchus and lung; Z88.1 Allergy status to other antibiotic agents; Z88.8 Allergy status to other drugs, medicaments and biological substances; Z87.891 Personal history of nicotine dependence; Z90.721 Acquired absence of ovaries, unilateral; Z90.710 Acquired absence of both cervix and uterus; Z79.899 Other long term (current) drug therapy; Z99.81 Dependence on supplemental oxygen; Z79.52 Long term (current) use of systemic steroids; Z82.49 Family history of ischemic heart disease and other diseases of the circulatory system; Z82.3 Family history of stroke; Z84.1 Family history of disorders of kidney and ureter
CPT/HCPCS: 10078; 10096; 27000

== ENCOUNTER 2016-07-03 08:39 | Inpatient (IN) | payer OTHER, BC ==
[~2016-07-03] VITALS: Ht 152.4 cm; Wt 45.4 kg
[~2016-07-03 08:39] MED LIST changes: +ARTIFICIAL TEA1 EACH; +BISACODYL SUPP10 MG RECTAL; +CARDIZEM CD240 MG PO; +CEPACOL SORE T1 EAC7 PO; +COLACE100 MG PO; +DEXILANT30 MG PO; +FLOVENT HFA 4444 MCG INH; +MIRALAX17 GM PO; +MSL20MG/ML PO; +NORVASC5 MG PO; +PACERONE 200 M200 M1 PO; +ROBINUL0.2 MG/1 M PO; +ROBITUSSIN15 MG/5 ML PO; +ROCEPHIN 11 GM/1001 IV; +TESSALON PERLE100 MG PO; +[UNRECOGNIZED DRUG - OTHER] NASAL
[2016-07-03 08:40] VITALS: BP 154/66
[2016-07-03 09:15] LABS: HEMATOCRIT 29.3 % (37.0-47.0); HEMOGLOBIN 9.6 gm/dL (12.0-15.0); MCHC 32.8 g/dL (28.0-37.0); MCV 94.5 fL (80.0-100.0); RBC 3.11 mil/uL (4.20-5.00); RDW 13.8 % (10.5-14.5)
[2016-07-03 09:18] LABS: MANUAL DIFF YES; PLATELET COUNT 461 thou/uL (150-400)
[2016-07-03 09:23] LABS: CALCIUM 9.3 mg/dL (8.5-10.1); CREATININE 0.5 mg/dL (0.6-1.0)
[2016-07-03 09:45] LABS: ABSOLUTE NEUTROPHILS 12.7 thou/uL (1.4-8.2); TOTAL CELL COUNT 100
[2016-07-03 09:46] LABS: ANISOCYTOSIS SLIGHT
[2016-07-03 10:03] LABS: ABG SAMPLE TYPE ARTERIAL; BE(vivo) 13.3 mmol/L (-2 to +3); HCO3 42.2 mmol/L (22.0-26.0); LACTATE 0.78 mmol/L (0.5-2.0); O2(CT) 13.3 mL/dL (15.0-23.0); O2Hb 91.7 % (92.0-98.0); PO2 67.4 mmHg (80.0-100.0); sO2 90.7 % (92.0-98.0); tCO2 44.7 mmol/L (24.0-30.0)
[2016-07-03 10:04] LABS: PCO2 84.1 mmHg (35.0-45.0); STICK SITE L.RADIAL; pH 7.318 (7.360-7.450)
[2016-07-03 12:35] VITALS: BP 141/54
[2016-07-03 13:45] LABS: ABG SAMPLE TYPE ARTERIAL; BE(vivo) 12.1 mmol/L (-2 to +3); HCO3 39.8 mmol/L (22.0-26.0); LACTATE 0.66 mmol/L (0.5-2.0); O2(CT) 12.9 mL/dL (15.0-23.0); O2Hb 92.8 % (92.0-98.0); PCO2 73.5 mmHg (35.0-45.0); PO2 70.9 mmHg (80.0-100.0); pH 7.352 (7.360-7.450); sO2 92.7 % (92.0-98.0); tCO2 42.1 mmol/L (24.0-30.0)
[2016-07-03 13:46] LABS: STICK SITE R.RADIAL; VDS BI-PAP 16/6 cc
[2016-07-03 16:11] VITALS: BP 155/72
[2016-07-03 19:56] VITALS: BP 154/66
[2016-07-04 03:08] LABS: HEMATOCRIT 25.1 % (37.0-47.0); HEMOGLOBIN 8.3 gm/dL (12.0-15.0); MCH 31.3 pg (26.0-34.0); MCV 94.7 fL (80.0-100.0); RBC 2.65 mil/uL (4.20-5.00); RDW 13.4 % (10.5-14.5); WBC 22.3 thou/uL (4.0-11.0)
[2016-07-04 03:31] VITALS: BP 129/50
[2016-07-04 03:52] LABS: ALBUMIN 1.7 g/dL (3.4-5.0); CALCIUM 8.8 mg/dL (8.5-10.1); CREATININE 0.8 mg/dL (0.6-1.0); MAGNESIUM 1.4 mg/dL (1.8-2.4); PHOSPHORUS 2.7 mg/dL (2.5-4.9); POTASSIUM 3.9 mmol/L (3.5-5.1)
[2016-07-04 07:40] VITALS: BP 141/62
[2016-07-04 12:30] VITALS: BP 141/54
[2016-07-04 16:05] VITALS: BP 148/61
[2016-07-04 19:20] VITALS: BP 152/56
[2016-07-05 02:57] LABS: HEMATOCRIT 24.4 % (37.0-47.0); HEMOGLOBIN 7.9 gm/dL (12.0-15.0); MCH 30.2 pg (26.0-34.0); MCHC 32.3 g/dL (28.0-37.0); MCV 93.6 fL (80.0-100.0); PLATELET COUNT 465 thou/uL (150-400); RBC 2.61 mil/uL (4.20-5.00); RDW 13.8 % (10.5-14.5); WBC 29.6 thou/uL (4.0-11.0)
[2016-07-05 03:10] LABS: ALBUMIN 1.8 g/dL (3.4-5.0); CALCIUM 8.7 mg/dL (8.5-10.1); CREATININE 0.7 mg/dL (0.6-1.0); MAGNESIUM 1.9 mg/dL (1.8-2.4); POTASSIUM 3.5 mmol/L (3.5-5.1); TOTAL BILIRUBIN 0.1 mg/dL (<0.1-1.0); TOTAL PROTEIN 5.9 g/dL (6.4-8.2)
[2016-07-05 03:11] LABS: MANUAL DIFF YES
[2016-07-05 04:38] VITALS: BP 130/48
[2016-07-05 06:11] LABS: TOTAL CELL COUNT 100
[2016-07-05 06:54] VITALS: BP 117/49
[2016-07-05 09:07] LABS: ABG SAMPLE TYPE ARTERIAL; BE(vivo) 11.3 mmol/L (-2 to +3); HCO3 36.9 mmol/L (22.0-26.0); O2(CT) 13.5 mL/dL (15.0-23.0); O2Hb 85.7 % (92.0-98.0); PCO2 53.4 mmHg (35.0-45.0); STICK SITE L.RADIAL; pH 7.457 (7.360-7.450); sO2 86.5 % (92.0-98.0); tCO2 38.5 mmol/L (24.0-30.0)
[2016-07-05 16:08] LABS: ABG SAMPLE TYPE ARTERIAL; BE(vivo) 13.3 mmol/L (-2 to +3); HCO3 39.5 mmol/L (22.0-26.0); LACTATE 0.98 mmol/L (0.5-2.0); O2(CT) 12.2 mL/dL (15.0-23.0); O2Hb 96.4 % (92.0-98.0); PCO2 61.7 mmHg (35.0-45.0); PO2 101.1 mmHg (80.0-100.0); pH 7.424 (7.360-7.450); sO2 97.5 % (92.0-98.0); tCO2 41.4 mmol/L (24.0-30.0)
[2016-07-05 20:35] VITALS: BP 137/43
[2016-07-06 05:14] VITALS: BP 133/47
[2016-07-06 08:00] VITALS: BP 148/56
[2016-07-06] MEDS ORDERED: AZTREONAM INJECTION ×2 (10:38→11:02)
[2016-07-06] MEDS ORDERED: VANCO1GM IV ×2 (10:38→11:02)
[2016-07-06] MEDS ORDERED: PRIMIDONE50 MG PO (10:39)
[2016-07-06] MEDS ORDERED: SOLU-MEDRO40 MG/1 M2 IV PUSH (10:40)
[2016-07-06 12:49] VITALS: BP 149/62
== END 2016-07-06 15:04 | DRG 177 ==
LOC: ER 08:39 → EROBS 09:57 → 4W 09:57
PROVIDERS: Emergency Medicine; Hospitalist; Internal Medicine Pulmonary Disease
PROC: 3E0336Z Introduction of Nutritional Substance into Peripheral Vein, Percutaneous Approach (ICD-10-PCS; principal; 2016-07-03)
PROC: 5A09457 Assistance with Respiratory Ventilation, 24-96 Consecutive Hours, Continuous Positive Airway Pressure (ICD-10-PCS; 2016-07-03)
DX: J69.0 Pneumonitis due to inhalation of food and vomit (principal); J96.21 Acute and chronic respiratory failure with hypoxia; J96.22 Acute and chronic respiratory failure with hypercapnia; I48.92 Unspecified atrial flutter; B37.0 Candidal stomatitis; E44.0 Moderate protein-calorie malnutrition; Z68.1 Body mass index [BMI] 19.9 or less, adult; F41.9 Anxiety disorder, unspecified; G62.9 Polyneuropathy, unspecified; R53.81 Other malaise; I10 Essential (primary) hypertension; J44.9 Chronic obstructive pulmonary disease, unspecified; Z82.49 Family history of ischemic heart disease and other diseases of the circulatory system; Z88.1 Allergy status to other antibiotic agents; Z90.710 Acquired absence of both cervix and uterus; Z90.721 Acquired absence of ovaries, unilateral; Z88.8 Allergy status to other drugs, medicaments and biological substances; Z87.891 Personal history of nicotine dependence; Z85.118 Personal history of other malignant neoplasm of bronchus and lung; Z82.3 Family history of stroke
CPT/HCPCS: 10045

== ENCOUNTER → 2016-07-13 | Outpatient (CLI) | payer OTHER ==
[~2016-07-13] MED LIST changes: +AZTREONAM INJECTION; +VANCO1GM IV
== END ==
LOC: CAT 07:38
DX: R91.1 Solitary pulmonary nodule (principal); N28.1 Cyst of kidney, acquired; E27.9 Disorder of adrenal gland, unspecified